=== PATIENT | female | born 1960 | race Caucasian/White ===

== ENCOUNTER 2021-01-30 12:57 | Emergency (ER) | payer OTHER, SELFPAY ==
[2021-01-30 14:10] VITALS: BP 133/94; PULSE 56; RESP 16; TEMP 36.6; O2SAT 98; BMI 34.4
--- NOTE | 2021-01-30 15:34 | XRR_ITS ---
PROCEDURE INFORMATION: Exam: XR Left Ankle Exam date and time: 01/30/2021 3:34 PM Age: 60 years old Clinical indication: Injury or trauma; Blunt trauma; Left; Patient HX: C/O L ankle pain after a fall last night TECHNIQUE: Imaging protocol: XR Left ankle. Views: 3 or more views. COMPARISON: No relevant prior studies available. FINDINGS: Bones/joints: Mildly displaced oblique fracture through the distal left fibula. The other bones are intact. Calcaneus spur. Soft tissues: Lateral soft tissue swelling. XR/XR ankle LT min 3V* [id number] IMPRESSION: 1. Distal left fibula fracture.
--- NOTE | 2021-01-30 16:43 | ED_ITS ---
HPI - Extremity Problem General: Chief complaint: Extremity Injury, Lower Stated complaint: LLE INJURY DUE TO SYNCOPAL EPISODE LAST PM Time Seen by Provider: 01/30/21 15:34 Source: patient Mode of arrival: wheelchair Limitations: no limitations History of Present Illness: HPI Narrative: Pt presents to ER with left ankle pain. Patient states she got overheated yesterday and had a near syncopal episode making her fall patient states she did not hit her head patient does not have any neck pain patient is not on any blood thinners. Patient states that she woke up with worsening pain to her left ankle and swelling. Patient denies any other complaints or injuries. Associated symptoms: Deny chest pain, fever(s) or rash Review of Systems Const: Denies: fever(s), chills, body aches, change in appetite, change in yari ght, fatigue, malaise or diaphoresis Eyes: Denies: change in vision, blurry vision, blind spots, photophobia, eye discomfort, eye discharge, eye redness, floaters or seeing flashes ENMT: Denies: throat pain, uvular edema, enlarged tonsils, odynophagia, hoarseness, mouth pain, swelling of lips/tongue, oral sores, bleeding gums, dental pain, dry mouth, ear or mastoid pain, ear discharge, change in hearing, tinnitus, disequilibrium, nasal discharge, nasal congestion, post nasal drip or sinus pain Card: Denies: chest pain, palpitations, irregular heart rhythm, edema, swelling of feet/ankles, lightheadedness, syncope, pre-syncope, dyspnea on exertion, orthopnea, leg pain with exertion or acrocyanosis Resp: Denies: dyspnea, productive cough, non-productive cough, wheezing, st ridor, pain on inspiration, change in phlegm color, hemoptysis or chest congestion GI: Denies: abdominal pain, nausea, vomiting, hematemesis, dysphagia, diarrhea, constipation, GI cramping, change in bowel habits or rectal pain : Denies: flank pain, difficulty voiding, dysuria, urinary frequency, urinary urgency, urinary hesitancy or hematuria Musc: Reports: extremity pain; Denies: neck pain, back pain, extremity swelling, joint pain, joint swelling, joint redness, joint warmth or deformity Skin/Breast: Denies: rash, pruritus, erythema, sores, new lesions, changes in skin color or dry skin Neuro: Denies: headache(s), numbness in extremities, weakness in extremities, sensory changes, lack of coordination, difficulty walking, frequent falls, dizziness, vertigo, confusion, behavioral changes, Slurred speech present, difficulty communicating thoughts or seizure-like activity Psych: Denies: anxiety, depression, suicidal ideation or homicidal ideation Endo: Denies: polyuria, polydipsia, tired all the time, cold intolerance, excessive sweating, flushing, hot flashes or heat intolerance Chandler/Lymph: Denies: easy bruising, easy bleeding, petechiae, purpura, enlarged lymph nodes or tender lymph nodes All/Imm: Denies: urticaria, throat swelling, tongue swelling, facial swelling, acute wheezing or itchy eyes Physical Exam Const: COMMON NORMALS: no acute distress, average body habitus, patient oriented x3, no limitations, healthy appearing, alert and well nourished HENMT: THROAT: no uvular edema Neck/C-Spine: COMMON NORMALS: full ROM, no lymphadenopathy, supple, no meningeal signs, no JVD, Thyroid normal and No carotid bruits THYROID: Thyroid normal Cardio: COMMON NORMALS: no JVD Extremity: LEFT LOWER EXTREMITY: Yes ankle joint (Swelling to lateral malleolus) Neuro: COMMON NORMALS: patient oriented x3 SENSORIUM/ORIENTATION: Yes alert MENINGEAL SIGNS: Yes no meningeal signs Course Vital Signs: Vital signs: Vital Signs Temperature 98 F 01/30/21 14:10 Pulse Rate 56 L 01/30/21 14:10 Respiratory Rate 16 01/30/21 14:10 Blood Pressure 133/94 01/30/21 14:10 Pulse Oximetry 98 01/30/21 14:10 MDM - Extremity (Nontraumatic) MDM Narrative: Medical decision making narrative: Problem patient is well- appearing nontoxic and in no acute distress. Patient's x-ray by my interpretation does reveal a distal fibular fracture I will plan on placing patient in a posterior OCL give her crutches and have her follow-up with Ortho. Patient was given pain medicine while here in the emergency department I will send patient home with a short course of pain medication. Patient was neurovascularly intact distally pre and post cast application. I discussed with patient her near syncopal episode that occurred yesterday she states that she does not want any work-up or treatment for this. Patient states she just got overheated patient states that he does not have any chest pain or shortness of breath. Again patient is declining any work-up for this. Discharge Plan Discharge Patient Disposition: Home Clinical Impression: Fracture of distal end of fibula Qualifiers: Encounter type: initial encounter Fracture type: closed Fracture morphology: unspecified fracture morphology Laterality: left Qualified Code(s): S82.832A - Other fracture of upper and lower end of left fibula, initial encounter for closed fracture Condition: Stable Prescriptions: New Percocet 5-325 mg tablet 1 tab PO Q8H PRN (Reason: pain) Qty: 14 RF: 0 Discharge Orders: Discharge ED (Routine); Ordered 01/30/21 Ordered By: Sowmya Gerber Referrals: Nemo Genao FNP [Primary Care Provider] - Discharge Diet: Advance as tolerated Discharge Activity: Use walker/crutches as instructed Patient Instructions: Ankle Fracture (ED), Opioid Safety Activity Restrictions/Additional Instructions: Please use crutches and no weight on ankle until seen by Ortho Sales Project Administrator will call you tomorrow Please take pain meds as prescribed No driving or operating heavy machinery while taking pain meds Please return to ER with any loss of sensation or inability to move foot or if foot becomes dislocation Coding Level of Care Code ED Sleep Lab Technologist for Freddy Drummond
--- NOTE | 2021-01-30 16:57 | PC.NURSE ---
Posterior short leg OCL appled L-leg.
[2021-01-30] MEDS: HYDROcodone-acetaminophen 5-325 mg Tablet 1 TAB PO (16:59)
--- NOTE | 2021-01-31 09:59 | DCPLANNER ---
production team manager had message to schedule a follow up appointment for patient with ortho for a fractured ankle. production team manager called the ortho clinic, spoke with Jannie, gave clinic patients information. production team manager was told that patients information would be printed and reviewed. Clinic will call patient with appointment information.
--- NOTE | 2021-02-01 12:52 | DCPLANNER ---
Patient had a follow up appointment scheduled for 01.31.[address] Wright at [facility] - patient did attend appointment.
== END 2021-01-30 17:15 | disposition home or self-care (01) ==
PROVIDERS: Emergency Provider Registered Nurse; PCP Nurse Practitioner Family
DX: S82.832A Other fracture of upper and lower end of left fibula, initial encounter for closed fracture (principal); W19.XXXA Unspecified fall, initial encounter
CPT/HCPCS: 29515; 73610; 99283; E0114

== ENCOUNTER 2021-01-31 16:13 | Outpatient (CLI) | payer OTHER, SELFPAY | END 2021-01-31 16:14 | disposition home or self-care (01) | LOC: SPT 16:14 | PROVIDERS: PCP Nurse Practitioner Family; Visit Provider Podiatrist Foot & Ankle Surgery | DX: Z46.89 Encounter for fitting and adjustment of other specified devices (principal); S82.832D Other fracture of upper and lower end of left fibula, subsequent encounter for closed fracture with routine healing; X58.XXXD Exposure to other specified factors, subsequent encounter | CPT/HCPCS: 97760; L4361 ==

== ENCOUNTER 2021-02-20 07:04 | Outpatient (CLI) | payer OTHER, SELFPAY ==
[2021-02-20 10:27] VITALS: BP 161/97; PULSE 62; RESP 18; TEMP 36.8; O2SAT 96; BMI 37.3
[2021-02-20 11:52] VITALS: BP 147/89; PULSE 59; RESP 18; TEMP 37.1; O2SAT 97
--- NOTE | 2021-02-20 11:52 | PC.NURSE ---
IV DC'd, cath intact, bleeding controlled with cotton ball and coban,zero difficulties or complaints.
[2021-02-20 12:52] VITALS: BP 147/89; PULSE 59; RESP 18; TEMP 37.1; O2SAT 97
--- NOTE | 2021-02-20 12:52 | PC.NURSE ---
DC ,Ambulatory to POV with zero difficulties.
== END 2021-02-20 07:05 | disposition home or self-care (01) ==
LOC: ER 07:10
PROVIDERS: PCP Internal Medicine; Visit Provider Nurse Practitioner Family
DX: U07.1 COVID-19 (principal)
CPT/HCPCS: 96374

== ENCOUNTER → 2021-03-07 13:31 | Outpatient (BNVA) | payer OTHER, SELFPAY | PROVIDERS: PCP Internal Medicine; Visit Provider Podiatrist Foot & Ankle Surgery | DX: S82.832A Other fracture of upper and lower end of left fibula, initial encounter for closed fracture (principal); X58.XXXA Exposure to other specified factors, initial encounter | CPT/HCPCS: 73610; 99282 ==

== ENCOUNTER → 2021-04-01 13:46 | Outpatient (BNVA) | payer OTHER, SELFPAY | PROVIDERS: PCP Internal Medicine; Visit Provider Podiatrist Foot & Ankle Surgery | DX: S82.832A Other fracture of upper and lower end of left fibula, initial encounter for closed fracture (principal); X58.XXXA Exposure to other specified factors, initial encounter | CPT/HCPCS: 73610 ==

== ENCOUNTER 2021-04-01 14:15 | Outpatient (CLI) | payer OTHER, SELFPAY | END 2021-04-01 14:16 | disposition home or self-care (01) | LOC: SPT 14:16 | PROVIDERS: PCP Internal Medicine; Visit Provider Podiatrist Foot & Ankle Surgery | DX: Z46.89 Encounter for fitting and adjustment of other specified devices (principal); S82.832D Other fracture of upper and lower end of left fibula, subsequent encounter for closed fracture with routine healing; X58.XXXD Exposure to other specified factors, subsequent encounter | CPT/HCPCS: L4361 ==

== ENCOUNTER → 2021-04-27 12:52 | Outpatient (BNVA) | payer OTHER, SELFPAY | PROVIDERS: PCP Internal Medicine; Visit Provider Podiatrist Foot & Ankle Surgery | DX: S82.832D Other fracture of upper and lower end of left fibula, subsequent encounter for closed fracture with routine healing (principal); M25.372 Other instability, left ankle; X58.XXXA Exposure to other specified factors, initial encounter | CPT/HCPCS: 73610 ==

== ENCOUNTER → 2021-05-26 12:59 | Outpatient (BNVA) | payer OTHER, SELFPAY | PROVIDERS: PCP Internal Medicine; Visit Provider Podiatrist Foot & Ankle Surgery | DX: S82.832D Other fracture of upper and lower end of left fibula, subsequent encounter for closed fracture with routine healing (principal); X58.XXXD Exposure to other specified factors, subsequent encounter | CPT/HCPCS: 73610 ==

== ENCOUNTER → 2023-02-15 13:43 | Outpatient (BNVA) | payer OTHER, SELFPAY | PROVIDERS: PCP Internal Medicine; Visit Provider Emergency Medicine | DX: R50.9 Fever, unspecified (principal); Z20.822 Contact with and (suspected) exposure to COVID-19 | CPT/HCPCS: 87426 ==

== ENCOUNTER 2023-02-16 10:45 | Emergency (ER) | payer OTHER, SELFPAY ==
[2023-02-16] VITALS (7 sets, daily range): BP systolic 104–141; BP diastolic 62–101; PULSE 93–123; RESP 16–18; TEMP 36.6; O2SAT 92–98; BMI 34.4
[2023-02-16 12:08] LABS: Basophils # 0.1 10^3/uL (0.0-0.1); Basophils % 0.4 %; Eosinophils % 0.1 %; Hematocrit 43.2 % (37.0-47.0); Hemoglobin 14.2 g/dL (11.5-15.3); Lymphocytes # 1.3 10^3/uL (0.8-4.8); Lymphocytes % 6.5 %; Mean Corpuscular HGB Conc 32.9 g/dL (30.0-36.0); Mean Corpuscular Hemoglobin 29.5 pg (28.0-34.0); Mean Corpuscular Volume 89.6 fl (81-99); Mean Platelet Volume 11.4 fL (7.4-10.4); Monocytes # 2.1 10^3/uL (0.2-0.9); Monocytes % 10.1 %; Neutrophils % 82.4 %; Nucleated Red Blood Cells % 0 %; Platelet Count 316 10^3/cmm (130-400); Red Blood Count 4.82 10^6/uL (4.1-5.3); Red Cell Distribution Width 11.9 % (12.1-15.1); White Blood Count 20.3 10^3/uL (4.0-10.0)
[2023-02-16 12:29] LABS: Alanine Aminotransferase 15 U/L (0-33); Albumin Level 4.5 g/dL (3.5-5.2); Alkaline Phosphatase 106 U/L (35-105); Anion Gap 17.3 (5-19); Aspartate Amino Transferase 21 U/L (0-32); Blood Urea Nitrogen 13 mg/dL (8-23); Calcium 9.5 mg/dL (8.5-10.5); Carbon Dioxide 26 mmol/L (22-29); Chloride 96 mmol/L (98-107); Globulin 2.2 g/dL (1.3-4.6); Glomerular Filtration Rate 72.9 mL/min (90-130); Glucose 123 mg/dL (65-115); Lipase 14 U/L (13-60); Osmolality Calculated 281 mOsm/kg (285-295); Potassium 4.3 mmol/L (3.5-5.1); Sodium 135 mmol/L (136-145); Total Bilirubin 1.1 mg/dL (0.15-1.2); Total Protein 6.7 g/dL (6.6-8.7)
--- NOTE | 2023-02-16 12:42 | CT_ITS ---
WS: [id number] CT ABDOMEN PELVIS TECHNIQUE: Noncontrast CT of the abdomen and pelvis with coronal and sagittal reformatted images. CLINICAL INFORMATION: Abdominal pain COMPARISON: None. DLP: 974.[address] scans at [facility] use at least one of these dose optimization techniques: automated e xposure control; mA and/or kV adjustment per patient size (includes targeted exams where dose is matc hed to clinical indication); or iterative reconstruction. FINDINGS: Diffuse gallbladder wall thickening with surrounding inflammatory changes and edema suspicious for ac [place] cholecystitis. Cholelithiasis with calcified stones in the gallbladder neck extending to the cyst ic duct. Suspected associated compression of the common hepatic duct. This can be further evaluated w ith MRCP if indicated. Distal common bile duct appears to taper normally. No significant intrahepatic biliary ductal dilatation. Enlarged lymph nodes within the gallbladder fossa with pericholecystic fl uid. Patient risk for a cholecystocholedochal fistula with Mirizzi syndrome. Inflammatory changes and edema surrounding the hepatic flexure RIGHT upper quadrant. Duodenum courses adjacent to the gallbladder with loss of fat plane. Patient risk for cholecystoduode nal fistula especially if persistent chronic inflammation. Noncontrast liver appears normal. Normal noncontrast spleen. Normal GE junction. Lung bases are well aerated. Noncontrast pancreas appears normal. Splenic artery calcification. Normal caliber abdominal aorta. Aortic calcification. Adrenal glands are normal. No hydronephrosis in either kidney. [id number] amount of free fluid in the pelvis. Lobulated retroverted uterus with suspected exo phytic fibroid measuring 3.7 CM. This can be followed up with ultrasound on an elective basis. Inspis sated secretions in the appendix. CT/CT kidney stone [id number] IMPRESSION: 1. Distended gallbladder with diffuse gallbladder thickening and pericholecyst ic fluid with inflammation compatible with acute cholecystitis. 2. Calcified gallstones high within the gallbladder neck near the cystic duct. Possible compression of the traversing common hepatic duct which can be seen w ith Mirizzi syndrome. Patient at risk for cholecystocholedochal fistula with Mi jovanna syndrome. 3. Loss of the fat plane with inflammatory changes extending about the jerad ing adjacent duodenum. Patient risk for cholecystoduodenal fistula especially i f persistent chronic inflammation. 4. Common bile duct appears to taper normally distally. No intrahepatic biliar y duct dilatation. 5. Lobulated uterus with suspected exophytic fibroid measuring 3.7 x 3.1 CM. T his can be followed up with ultrasound on an elective basis. 6. Small amount of free fluid in the pelvis. 7. Inspissated secretions in the appendix. 8. No hydronephrosis in either kidney. Notified Alphonse Wong DO at 02/16/2023 1:59 PM.
[2023-02-16 12:46] LABS: Bilirubin Urine 1+ (Negative); Blood Urine 2+ (Negative); Glucose Urine UA Norm (Normal); Ketones Urine 1+ (Negative); Leukocyte Esterase Urine Trace (Negative); Nitrate Urine Negative (Negative); Protein Urine Trace (Negative); Urine Appearance Clear (CLEAR); Urine Color Amber (Yellow); Urobilinogen Urine 4 mg/dL (Negative); pH Urine 5 (5-7)
[2023-02-16 12:47] LABS: Add Urine Microscopic? YES
[2023-02-16 12:48] LABS: Add Urine Culture? No; Amorphous Sediment Urine 1+ /hpf; Mucus Urine 1+ /hpf; Squamous Epithelial Cell Urine 0-4 /hpf (0-5); WBC Urine 0-4 /hpf (0-5)
--- NOTE | 2023-02-16 13:00 | ED_ITS ---
Documented by User: Alphonse Wong DO 02/16/23 18:32 HPI - Abdominal Pain General: Chief Complaint: Abdominal Pain Stated Complaint: abd pain on right side Time Seen by Provider: 02/16/23 11:59 Source: patient Mode of arrival: ambulatory History of Present Illness: 62-year-old female comes in complaining of right-sided abdominal pain for the last 4 days. She had nausea and vomiting during that time no hematochezia melena hematemesis or coffee-ground emesis no dysuria urgency or frequency. E ating makes it worse. Right upper quadrant right mid abdominal pain. She had temperature up to 101 yesterday. MD elicited complaint: abdominal pain Pertinent past history: none Onset (ago): day(s) (4) Pain Consistency: constant Location: RUQ Severity: moderate Quality: cramping Exacerbating factors: eating Relieving factors: nothing Associated Symptoms: Reports nausea and vomiting; Denies anorexia, belching, bloating, change in bowel habits, change in stool character, chills, coffee ground emesis, constipation, GI cramping, diarrhea, dyspepsia, dysuria, excessive flatus, fever(s), heartburn, hematochezia, hem aturia, hematemesis, fecal incontinence, loose stools, melena, poor appetite and syncope Review of Systems Const: Denies: fever(s) or chills Card: Denies: syncope GI: Reports: abdominal pain, nausea and vomiting; Denies: hematemesis, coffee ground emesis, heartburn, diarrhea, constipation, bloating, GI cramping, belching, excessive flatus, fecal incontinence, change in bowel habits, change in stool character, hematochezia or melena : Denies: dysuria, urinary frequency, urinary urgency or hematuria Physical Exam Const: GENERAL APPEARANCE: cooperative and comfortable ORIENTATION/CONSCIOUSNESS: Yes awake, Yes oriented to person, Yes oriented to place and Yes oriented to time HENMT: COMMON NORMALS: normocephalic, atraumatic and hearing grossly normal bilaterally HEAD & SCALP: normocephalic and atraumatic Resp: COMMON NORMALS: normal respiratory effort, No retractions, No use of accessory muscles and clear to auscultation bilaterally AUSCULTATION: clear to auscultation bilaterally Cardio: COMMON NORMALS: regular rate, regular rhythm and No murmurs present (Cardio) RATE: regular rate RHYTHM: regular rhythm GI: COMMON NORMALS: No hepatosplenomegaly present AUSCULTATION: Yes normoactive bowel sounds PALPATION: Yes Tenderness to palpation present (GI) (Right mid abdomen) Details: RUQ, No Guarding due to palpation present (GI) and Yes No hepatosplenomegaly present Extremity: COMMON NORMALS: normal to inspection, capillary refill normal, no clubbing, cyanosis or edema, no calf tenderness and no pedal edema Neuro: SENSORIUM/ORIENTATION: Yes oriented to person, Yes oriented to place and Yes oriented to time Skin: COMMON NORMALS: no rashes or lesions noted GENERAL SKIN EXAM: no rashes or lesions noted Course Vital Signs: Vital signs: Vital Signs Temperature 97.8 F 02/16/23 10:51 Pulse Rate 101 H 02/16/23 16:39 Respiratory Rate 16 02/16/23 22:41 Blood Pressure 112/62 02/16/23 22:41 Pulse Oximetry 92 02/16/23 22:41 Oxygen Delivery Me thod Room Air 02/16/23 15:34 MDM - Abdominal Pain Medical Decision Making Maintenance fluids ordered. Second dose of Zosyn ordered as well. Care signed out to Dr. Gil at change of shift. See final notes for diagnosis and disposition. Lab Data 02/16/23 11:58 02/16/23 11:58 Labs/Radiology: Radiology Impressions Abdomen/Pelvis CT 02/16/23 12:42 IMPRESSION: 1. Distended gallbladder with diffuse gallbladder thickening and pericholecystic fluid with inflammation compatible with acute cholecystitis. 2. Calcified gallstones high within the gallbladder neck near the cystic duct. Possible compression of the traversing common hepatic duct which can be seen with Mirizzi syndrome. Patient at risk for cholecystocholedochal fistula with Mirizzi syndrome. 3. Loss of the fat plane with inflammatory changes extending about the traversing adjacent duodenum. Patient risk for cholecystoduodenal fistula especially if persistent chronic inflammation. 4. Common bile duct appears to taper normally distally. No intrahepatic biliary duct dilatation. 5. Lobulated uterus with suspected exophytic fibroid measuring 3.7 x 3.1 CM. This can be followed up with ultrasound on an elective basis. 6. Small amount of free fluid in the pelvis. 7. Inspissated secretions in the appendix. 8. No hydronephrosis in either kidney. Notified Alphonse Wong DO at 02/16/2023 1:59 PM. Gallbladder Ultrasound 02/16/23 13:30 IMPRESSION: 1. Diffuse gallbladder wall thickening with pericholecystic fluid compatible with acute cholecystitis. Positive Gold's sign. 2. Cholelithiasis and sludge. Calcified stones in gallbladder neck as seen on the recent CT. 3. Common bile duct measuring 7.1 mm upper limits of normal. This can be further evaluated with MRCP if indicated. Recommend correlation with biliary function tests. No visualized choledocholithiasis. 4. Hepatomegaly. Notified Alphonse Wong DO at 02/16/2023 2:36 PM. Laboratory Results WBC 20.3 10^3/uL (4.0-10.0) H 02/16/23 11:58 RBC 4.82 10^6/uL (4.1-5.3) 02/16/23 11:58 Hgb 14.2 g/dL (11.5-15.3) 02/16/23 11:58 Hct 43.2 % (37.0-47.0) 02/16/23 11:58 MCV 89.6 fl (81-99) 02/16/23 11:58 MCH 29.5 pg (28.0-34.0) 02/16/23 11:58 MCHC 32.9 g/dL (30.0-36.0) 02/16/23 11:58 RDW 11.9 % (12.1-15.1) L 02/16/23 11:58 Plt Count 316 10^3/cmm (130-400) 02/16/23 11:58 MPV 11.4 fL (7.4-10.4) H 02/16/23 11:58 Neut % (Auto) 82.4 % 02/16/23 11:58 Lymph % (Auto) 6.5 % 02/16/23 11:58 [place] % (Auto) 10.1 % 02/16/23 11:58 Eos % (Auto) 0.1 % 02/16/23 11:58 Baso % (Auto) 0.4 % 02/16/23 11:58 Neut # (Auto) 16.70 10^3/uL (1.8-7.7) H 02/16/23 11:58 Lymph # (Auto) 1.3 10^3/uL (0.8-4.8) 02/16/23 11:58 [place] # (Auto) 2.1 10^3/uL (0.2-0.9) H 02/16/23 11:58 Eos # (Auto) 0.0 10^3/uL (0.0-0.8) 02/16/23 11:58 Baso # (Auto) 0.1 10^3/uL (0.0-0.1) 02/16/23 11:58 Nucleated RBC % (auto) 0 % 02/16/23 11:58 Nucleated RBCs # 0.0 /100WBC 02/16/23 11:58 Sodium 135 mmol/L (136-145) L 02/16/23 11:58 Potassium 4.3 mmol/L (3.5-5.1) 02/16/23 11:58 Chloride 96 mmol/L (98-107) L 02/16/23 11:58 Carbon Dioxide 26 mmol/L (22-29) 02/16/23 11:58 Anion Gap 17.3 (5-19) 02/16/23 11:58 BUN 13 mg/dL (8-23) 02/16/23 11:58 Creatinine 0.8 mg/dL (0.5-0.9) 02/16/23 11:58 GFR Calculation 72.9 mL/min (90-130) L 02/16/23 11:58 Glucose 123 mg/dL (65-115) H 02/16/23 11:58 Calculated Osmolality 281 mOsm/kg (285-295) L 02/16/23 11:58 Calcium 9.5 mg/dL (8.5-10.5) 02/16/23 11:58 Total Bilirubin 1.1 mg/dL (0.15-1.2) 02/16/23 11:58 AST 21 U/L (0-32) 02/16/23 11:58 ALT 15 U/L (0-33) 02/16/23 11:58 Alkaline Phosphatase 106 U/L (35-105) H 02/16/23 11:58 Total Protein 6.7 g/dL (6.6-8.7) 02/16/23 11:58 Albumin 4.5 g/dL (3.5-5.2) 02/16/23 11:58 Globulin 2.2 g/dL (1.3-4.6) 02/16/23 11:58 Lipase 14 U/L (13-60) 02/16/23 11:58 Urine Color Charu (Yellow) 02/16/23 12:24 Urine Appearance Clear (CLEAR) 02/16/23 12:24 Urine pH 5 (5-7) 02/16/23 12:24 Ur Specific [place] 1.020 (1.005-1.030) 02/16/23 12:24 Urine Protein Trace (Negative) 02/16/23 12:24 Urine Glucose (UA) Norm (Normal) 02/16/23 12:24 Urine Ketones 1+ (Negative) H 02/16/23 12:24 Urine Blood 2+ (Negative) H 02/16/23 12:24 Urine Nitrate Negative (Negative) 02/16/23 12:24 Urine Bilirubin 1+ (Negative) H 02/16/23 12:24 Urine Urobilinogen 4 mg/dL (Negative) H 02/16/23 12:24 Ur Leukocyte Esterase Trace (Negative) H 02/16/23 12:24 Urine RBC 5-10 /hpf (0-2) H 02/16/23 12:24 Urine WBC 0-4 /hpf (0-5) H 02/16/23 12:24 Ur Squamous Epith Cells 0-4 /hpf (0-5) H 02/16/23 12:24 Amorphous Sediment 1+ /hpf 02/16/23 12:24 Urine Bacteria None /hpf (NONE) 02/16/23 12:24 Urine Mucus 1+ /hpf 02/16/23 12:24 Discharge Plan Discharge Condition: Stable Prescriptions: No Action (DME) ASO to the Right See Rx Instructions .ROUTE .MEDSUPPLY Qty: 1 0RF Rx Instructions: As directed metoprolol tartrate 100 mg tablet 100 mg PO BID aspirin 81 mg tablet,chewable 81 mg PO DAILY methocarbamol 750 mg tablet 750 mg PO TID Qty: 30 0RF Referrals: Bailey Conde MD [Primary Care Provider] - Coding Level of Care Code ED Precision Filer Hand for Chg Fwd Documented by User: Yosef Gil DO 02/17/23 03:49 HPI - Abdominal Pain General: Chief Complaint: Abdominal Pain Stated Complaint: abd pain on right side Time Seen by Provider: 02/16/23 11:59 Course Vital Signs: Vital signs: Vital Signs Temperature 97.8 F 02/16/23 10:51 Pulse Rate 101 H 02/16/23 16:39 Respiratory Rate 16 02/16/23 22:41 Blood Pressure 112/62 02/16/23 22:41 Pulse Oximetry 92 02/16/23 22:41 Oxygen Delivery Me thod Room Air 02/16/23 15:34 MDM - Abdominal Pain Medical Decision Making Maintenance fluids ordered. Second dose of Zosyn ordered as well. Care signed out to Dr. Gil at change of shift. See final notes for diagnosis and disposition. 62-year-old female with abdominal pain, no fever. Some tachycardia. She is normotensive. White blood cell count is 20. CT shows a distended gallbladder with diffuse wall thickening and pericholecystic fluid consistent with acute cholecystitis. Surgery was consulted by the previous physician. Concern is for possible chronic inflammation, and a potential fistula complicating her anatomy. The surgeons concern is that the common bile duct may have to be reconstructed. We contacted both hospitals in [place]. [facility] states that they usually send these patients to [facility] in [place] for subspecialty care. [facility] has accepted this patient in transfer. She remained stable. She will go by ground this morning. Lab Data 02/16/23 11:58 02/16/23 11:58 Labs/Radiology: Radiology Impressions Abdomen/Pelvis CT 02/16/23 12:42 IMPRESSION: 1. Distended gallbladder with diffuse gallbladder thickening and parris cholecystic fluid with inflammation compatible with acute cholecystitis. 2. Calcified gallstones high within the gallbladder neck near the cystic duct. Possible compression of the traversing common hepatic duct which can be seen with Mirizzi syndrome. Patient at risk for cholecystocholedochal fistula with Mirizzi syndrome. 3. Loss of the fat plane with inflammatory changes extending about the traversing adjacent duodenum. Patient risk for cholecystoduodenal fistula edwin ecially if persistent chronic inflammation. 4. Common bile duct appears to taper normally distally. No intrahepatic biliary duct dilatation. 5. Lobulated uterus with suspected exophytic fibroid measuring 3.7 x 3.1 CM. This can be followed up with ultrasound on an elective basis. 6. Small amount of free fluid in the pelvis. 7. Inspissated secretions in the appendix. 8. No hydronephrosis in either kidney. Notified Alphonse Wong DO at 02/16/2023 1:59 PM. Gallbladder Ultrasound 02/16/23 13:30 IMPRESSION: 1. Diffuse gallbladder wall thickening with pericholecystic fluid compatible with acute cholecystitis. Positive Gold's sign. 2. Cholelithiasis and sludge. Calcified stones in gallbladder neck as seen on the recent CT. 3. Common bile duct measuring 7.1 mm upper limits of normal. This can be further evaluated with MRCP if indicated. Recommend correlation with biliary function tests. No visualized choledocholithiasis. 4. Hepatomegaly. Notified Alphonse Wong DO at 02/16/2023 2:36 PM. Laboratory Results WBC 20.3 10^3/uL (4.0-10.0) H 02/16/23 11:58 RBC 4.82 10^6/uL (4.1-5.3) 02/16/23 11:58 Hgb 14.2 g/dL (11.5-15.3) 02/16/23 11:58 Hct 43.2 % (37.0-47.0) 02/16/23 11:58 MCV 89.6 fl (81-99) 02/16/23 11:58 MCH 29.5 pg (28.0-34.0) 02/16/23 11:58 MCHC 32.9 g/dL (30.0-36.0) 02/16/23 11:58 RDW 11.9 % (12.1-15.1) L 02/16/23 11:58 Plt Count 316 10^3/cmm (130-400) 02/16/23 11:58 MPV 11.4 fL (7.4-10.4) H 02/16/23 11:58 Neut % (Auto) 82.4 % 02/16/23 11:58 Lymph % (Auto) 6.5 % 02/16/23 11:58 [place] % (Auto) 10.1 % 02/16/23 11:58 Eos % (Auto) 0.1 % 02/16/23 11:58 Baso % (Auto) 0.4 % 02/16/23 11:58 Neut # (Auto) 16.70 10^3/uL (1.8-7.7) H 02/16/23 11:58 Lymph # (Auto) 1.3 10^3/uL (0.8-4.8) 02/16/23 11:58 [place] # (Auto) 2.1 10^3/uL (0.2-0.9) H 02/16/23 11:58 Eos # (Auto) 0.0 10^3/uL (0.0-0.8) 02/16/23 11:58 Baso # (Auto) 0.1 10^3/uL (0.0-0.1) 02/16/23 11:58 Nucleated RBC % (auto) 0 % 02/16/23 11:58 Nucleated RBCs # 0.0 /100WBC 02/16/23 11:58 Sodium 135 mmol/L (136-145) L 02/16/23 11:58 Potassium 4.3 mmol/L (3.5-5.1) 02/16/23 11:58 Chloride 96 mmol/L (98-107) L 02/16/23 11:58 Carbon Dioxide 26 mmol/L (22-29) 02/16/23 11:58 Anion Gap 17.3 (5-19) 02/16/23 11:58 BUN 13 mg/dL (8-23) 02/16/23 11:58 Creatinine 0.8 mg/dL (0.5-0.9) 02/16/23 11:58 GFR Calculation 72.9 mL/min (90-130) L 02/16/23 11:58 Glucose 123 mg/dL (65-115) H 02/16/23 11:58 Calculated Osmolality 281 mOsm/kg (285-295) L 02/16/23 11:58 Calcium 9.5 mg/dL (8.5-10.5) 02/16/23 11:58 Total Bilirubin 1.1 mg/dL (0.15-1.2) 02/16/23 11:58 AST 21 U/L (0-32) 02/16/23 11:58 ALT 15 U/L (0-33) 02/16/23 11:58 Alkaline Phosphatase 106 U/L (35-105) H 02/16/23 11:58 Total Protein 6.7 g/dL (6.6-8.7) 02/16/23 11:58 Albumin 4.5 g/dL (3.5-5.2) 02/16/23 11:58 Globulin 2.2 g/dL (1.3-4.6) 02/16/23 11:58 Lipase 14 U/L (13-60) 02/16/23 11:58 Urine Color Charu (Yellow) 02/16/23 12:24 Urine Appearance Clear (CLEAR) 02/16/23 12:24 Urine pH 5 (5-7) 02/16/23 12:24 Ur Specific [place] 1.020 (1.005-1.030) 02/16/23 12:24 Urine Protein Trace (Negative) 02/16/23 12:24 Urine Glucose (UA) Norm (Normal) 02/16/23 12:24 Urine Ketones 1+ (Negative) H 02/16/23 12:24 Urine Blood 2+ (Negative) H 02/16/23 12:24 Urine Nitrate Negative (Negative) 02/16/23 12:24 Urine Bilirubin 1+ (Negative) H 02/16/23 12:24 Urine Urobilinogen 4 mg/dL (Negative) H 02/16/23 12:24 Ur Leukocyte Esterase Trace (Negative) H 02/16/23 12:24 Urine RBC 5-10 /hpf (0-2) H 02/16/23 12:24 Urine WBC 0-4 /hpf (0-5) H 02/16/23 12:24 Ur Squamous Epith Cells 0-4 /hpf (0-5) H 02/16/23 12:24 Amorphous Sediment 1+ /hpf 02/16/23 12:24 Urine Bacteria None /hpf (NONE) 02/16/23 12:24 Urine Mucus 1+ /hpf 02/16/23 12:24 Discharge Plan Discharge Condition: Stable Prescriptions: No Action (DME) ASO to the Right See Rx Instructions .ROUTE .MEDSUPPLY Qty: 1 0RF Rx Instructions: As directed metoprolol tartrate 100 mg tablet 100 mg PO BID aspirin 81 mg tablet,chewable 81 mg PO DAILY methocarbamol 750 mg tablet 750 mg PO TID Qty: 30 0RF Referrals: Bailey Conde MD [Primary Care Provider] - Coding Level of Care Code ED Precision Filer Hand for Marissag Bhanu
--- NOTE | 2023-02-16 13:30 | US_ITS ---
WS: [id number] ULTRASOUND ABDOMEN LIMITED CLINICAL INFORMATION: Right upper quadrant abdominal pain COMPARISON: None. FINDINGS: Liver Size: Enlarged Craniocaudal length: 18.2 cm. Echogenicity: Normal. Surface nodularity: None. Mass (size and location): None. Bile ducts Intrahepatic ducts: Normal. Common bile duct diameter: 0.7 cm. Gallbladder Findings suspicious for acute cholecystitis Gallstones: Present Gallbladder sludge: Present Gallbladder wall thickenin mm Pericholecystic fluid: Present Sonographic Gold sign: Present Pancreas Normal as visualized. Right kidney: Normal. Hydronephrosis: None. Size: 12.1 cm x 6.1 cm x 4.5 cm. Abdominal aorta and IVC Visualized portions are normal. US/US gall bladder [id number] IMPRESSION: 1. Diffuse gallbladder wall thickening with pericholecystic fluid compatible w ith acute cholecystitis. Positive Gold's sign. 2. Cholelithiasis and sludge. Calcified stones in gallbladder neck as seen on the recent CT. 3. Common bile duct measuring 7.1 mm upper limits of normal. This can be furth er evaluated with MRCP if indicated. Recommend correlation with biliary functio n tests. No visualized choledocholithiasis. 4. Hepatomegaly. Notified Alphonse Wong DO at 02/16/2023 2:36 PM.
[2023-02-16] MEDS: ondansetron 2 mg/ML SDV 2 mL 4 MG IVP (14:19)
[2023-02-16] MEDS: morphine 4 mg/mL SDV 1 mL IVP ×2 (14:19→16:39)
[2023-02-16] MEDS: sodium chloride 0.9% 1,000 ML 999 ML IV (14:20)
[2023-02-16] MEDS: piperacillin-tazobactam 3.375 GM in sodium chloride 0.9% (plus) 50 ML IV ×2 (14:20→22:54)
--- NOTE | 2023-02-16 15:44 | DCPLANNER ---
Yennifer Reed advised no beds at this time for surgery unit and to try back this evening if needed.
--- NOTE | 2023-02-16 15:50 | DCPLANNER ---
lates[facility] tompkins would not be able to take this patient. He suggested trying [facility].
--- NOTE | 2023-02-16 16:08 | PM.CONSULT ---
Providers/Reason For Consult Consulting Physician/Specialty*: General surgery Reason for Consult*: Acute cholecystitis Primary Care Provider: Bailey Conde MD History of Present Illness History of Present Illness Phyllis Greene is a 62 year old female who presents to our emergency department complaining of right upper quadrant pain. Patient states that the pain started last Sunday, it was initially intermittent but after 48 hours it became constant and has limited her ability to continue her daily activities. In addition she has noticed multiple episodes of nausea that would lead to vomiting, in addition she had a fever up to 101 yesterday. Has not noticed any relieving factors but eating aggravates the pain. Review of Systems Narrative: A 10 point review of systems was done and is negative otherwise noted in HPI General: No constitutional complaints Respiratory: No shortness of breath Cardiovascular: No chest pain, no arrhythmia GI: Endorses abdominal pain, endorses nausea Musculoskeletal: No current complaints Medications/Allergies Home Medications Medication Instructions Recorded Confirmed Last Taken Type ASO to the Right #1 ea 04/27/21 02/16/23 Unknown Rx aspirin 81 mg chewable tablet 81 mg PO DAILY 05/26/21 02/16/23 02/16/23 History metoprolol tartrate 100 mg tablet 100 mg PO BID 05/26/21 02/16/23 02/16/23 History methocarbamol 750 mg tablet 750 mg PO TID #30 tabs 02/15/23 02/16/23 Unknown Rx Allergies Allergy/AdvReac Type Severity Reaction Status Date / Time tramadol Allergy Intermediate Hullucinati Verified 02/16/23 10:55 ons lisinopril Allergy syncope Uncoded 02/16/23 10:55 Vitals/I&O/Wt Last Vital Signs Temp 97.8 F 02/16/23 10:51 Pulse 94 02/16/23 15:34 Resp 18 02/16/23 10:51 BP 141/101 02/16/23 15:34 Pulse Ox 97 02/16/23 15:34 O2 Del Method Room Air 02/16/23 15:34 02/16/23 02/16/23 02/16/23 06:59 14:59 22:59 Intake Total 1050 / 1050 Balance 1050 / 1050 Weight last 48 hrs Weight 240 lb Physical Exam Narrative: General : Patient is well developed, oriented x3 Head : Normal cephalic, a-traumatic. Nose : Mucous membranes are without erythema. Lungs : Equal chest rise bilaterally, no use of accessory muscles, trachea is midline. CV : Rate and rhythm are normal. Abdomen : Abdomen is soft, mildly distended, there is significant tenderness to palpation in the right upper quadrant, Gold sign is positive. Extremities : No edema. Upper extremities are normal bilaterally. Data 02/16/23 11:58 02/16/23 11:58 A&P Assessment and plan (1) Acute cholecystitis: (2) Mirizzi's syndrome: Plan This is a 62-year-old female who presented to our emergency department with abdominal pain for the last 5 days. Pain is located in the right upper quadrant 10/10 of intensity, associated with nausea vomiting and worsening with food ingestion. Work-up done in the emergency department shows evidence of a elevated white count to 20 K, CT scan shows evidence of acute cholecystitis with a gallbladder wall up to 7 mm, severe pericholecystic inflammation involving the gallbladder duodenum and hepatic flexure of the colon, large impacted gallstones at the level of the neck of the gallbladder with absent cystic duct and loss of tissue planes between the gallbladder and the biliary structures as well as the gallbladder and the duodenum. On my clinical evaluation symptoms are consistent with acute cholecystitis. 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 I have had an extensive discussion with the patient regarding the possible need for surgery, versus management with nonoperative interventions (antibiotics). I Explained that due to severity of the inflammation surgery in this context is extremely risky for damage of the surrounding biliary structures or duodenum, which will carry severe long-term consequences. I have also mentioned that even with nonoperative management, there is likelihood of failure of treatment requiring cholecystectomy and there will be a need for an interval cholecystectomy once the acute episode resolves. I have also discussed that due to loss of tissue planes and an apparent compromise of the junction between the cystic duct and the common bile duct the likelihood of requiring biliary reconstruction during initial lap ben is high, I have informed the patient that at the moment we do not have the capability of providing this service in our institution and therefore I believe it is in her best interest to be transferred to a facility with the capability of management Hepatobiliary surgery or advance Gi availability. Plan was discussed with ER attending Dr. Wong who will initiate the transfer process. Coding Level of Care Code 93587 Diagnoses Acute cholecystitis K81.0 Mirizzi's syndrome K83.1
[2023-02-16] MEDS: sodium chlor 0.9% + KCl 20 mEq 20 MEQ/1,000 ML BAG 125 MEQ IV (19:08)
[2023-02-17] MEDS: morphine 4 mg/mL SDV 1 mL IVP (02:22)
[2023-02-17] MEDS: ondansetron 2 mg/ML SDV 2 mL 4 MG IVP (02:23)
[2023-02-17] MEDS: piperacillin-tazobactam 3.375 GM in sodium chloride 0.9% (plus) 50 ML IV (07:23)
== END 2023-02-17 08:00 | disposition short-term general hospital (02) ==
PROVIDERS: Physician Assistant; Emergency Provider Emergency Medicine; PCP Internal Medicine
DX: K80.20 Calculus of gallbladder without cholecystitis without obstruction (principal)
CPT/HCPCS: 36415; 74176; 76705; 80053; 81001; 83690; 85025; 96365; 96375; 96376; 99255; 99285; J2270; J2405; J2543; J3480; J7030

== ENCOUNTER 2023-11-16 13:03 | Outpatient (CLI) | payer OTHER, SELFPAY ==
--- NOTE | 2023-11-16 13:15 | MM_ITS ---
WS: [id number] BILATERAL 3D TOMOSYNTHESIS DIGITAL SCREENING MAMMOGRAPHY WITH CAD CLINICAL INFORMATION: SCREENING HISTORY: Screening mammogram. No current complaints. COMPARISON: 2013 TECHNIQUE: Bilateral CC and MLO views. FINDINGS: Scattered fibroglandular densities bilaterally. No suspicious focal mass, asymmetry, calcifications, or architectural distortion. No evidence of malignancy. A few incidental punctate and lucent centered calcifications. Bilateral biopsy clips. Lobulated focal asymmetric density central RIGHT breast unch anged since 2013 measuring 1.3 cm with adjacent small satellite nodule measuring 0.7 cm also unchange d. Vascular calcification. IMPRESSION: MM/[place] [id number] BI-RADS: 2-Benign FOLLOW UP: 1 Year Follow-up Recommend return to annual screening mammography.
== END 2023-11-16 13:04 | disposition home or self-care (01) ==
LOC: RAD 13:06
PROVIDERS: PCP Internal Medicine; Visit Provider Nurse Practitioner Family
DX: Z12.31 Encounter for screening mammogram for malignant neoplasm of breast (principal); R92.323 Mammographic fibroglandular density, bilateral breasts; N63.10 Unspecified lump in the right breast, unspecified quadrant
CPT/HCPCS: 77063; 77067

== ENCOUNTER 2024-01-09 09:47 | Day surgery (SDC) | payer OTHER, SELFPAY ==
[2024-01-09 10:07] VITALS: BP 149/85; PULSE 76; RESP 16; TEMP 36.4; O2SAT 98; BMI 33.7
[2024-01-09] MEDS: sodium chloride 0.9% 1,000 ML 30 ML IV (10:14)
--- NOTE | 2024-01-09 10:37 | P.ANESASSM_ITS ---
Pre-Anesthetic Assessment Height/Weight: Height 1.78 m Weight 106.594 kg Temp Pulse Resp BP Pulse Ox O2 Del Method 97.5 F L 76 16 149/85 98 Room Air 01/09/24 10:07 01/09/24 10:07 01/09/24 10:07 01/09/24 10:07 01/09/24 10:07 01/09/24 10:07 Operation Date: 01/09/24 11:00 Proposed Procedures p EGD 40697, 56867,G0105, K21.9, Z80.0, R1.13(Not Applicable) - Pascual Sadler DO s Colonoscopy(Not Applicable) - Pascual Sadler DO Familial anesthetic complications: none Was Beta Mary taken within 24 hours: N/A Was Clonidine taken within 24 hours: N/A Last intake: Intake Last Liquid Date 01/08/24 Last Liquid Time 21:00 Last Solid Date 01/07/24 Last Solid Time 19:00 Social No alcohol and No tobacco Exam alert, oriented x 3, clear to auscultation bilaterally and regular rate & rhythm Airway Mallampati: Class I Dentition: false CV/HEM Hypertension GI Gastroesophageal Reflux Disease Anesthetic Plan ASA status: 2 Anesthesia: MAC Risk of > 500 ml blood loss (7ml/kg in children): No Medications/Allergies Home Medications Medication Instructions Recorded Confirmed Last Taken Type ASO to the Right #1 ea 04/27/21 11/29/23 Unknown Rx aspirin 81 mg chewable tablet 81 mg PO DAILY 05/26/21 01/09/24 01/08/24 History amlodipine 2.5 mg tablet 2.5 mg PO DAILY 11/29/23 01/09/24 01/08/24 History olmesartan 40 mg tablet 40 mg PO DAILY 11/29/23 01/09/24 01/08/24 History pantoprazole 40 mg tablet,delayed 40 mg PO BID 6 weeks #84 tabs 11/29/23 01/09/24 01/08/24 Rx release (Protonix) Allergies Allergy/AdvReac Type Severity Reaction Status Date / Time tramadol Allergy Intermediate Hullucinati Verified 01/09/24 10:05 ons lisinopril Allergy syncope Uncoded 01/09/24 10:05 [facility] [place] Anesthesia Medical History (Updated 11/29/23 @ 14:43 by Pascual Sadler DO) Family history of colon cancer Family History Brother Diabetes Mother Hypertension Father Hypertension Social History Smoking and tobacco/nicotine status: never used tobacco/nicotine Second hand smoke exposure: No Alcohol intake: never Substance/Drug Use: never Data Anesthesia Cardiac Studies: No Data to Display
--- NOTE | 2024-01-09 11:06 | PM.HP ---
Providers/Chief Complaint Primary Care Provider: Bailey Conde MD Chief Complaint: K21.9, Z80.0, R1.13 History of Present Illness Phyllis Greene is a 63 year old female Review of Systems General: Reports: 10 or more systems reviewed and unremarkable except in HPI and below Medications/Allergies Home Medications Medication Instructions Recorded Confirmed Last Taken Type ASO to the Right #1 ea 04/27/21 11/29/23 Unknown Rx aspirin 81 mg chewable tablet 81 mg PO DAILY 05/26/21 01/09/24 01/08/24 History amlodipine 2.5 mg tablet 2.5 mg PO DAILY 11/29/23 01/09/24 01/08/24 History olmesartan 40 mg tablet 40 mg PO DAILY 11/29/23 01/09/24 01/08/24 History pantoprazole 40 mg tablet,delayed 40 mg PO BID 6 weeks #84 tabs 11/29/23 01/09/24 01/08/24 Rx release (Protonix) Allergies Allergy/AdvReac Type Severity Reaction Status Date / Time tramadol Allergy Intermediate Hullucinati Verified 01/09/24 10:05 ons lisinopril Allergy syncope Uncoded 01/09/24 10:05 PFSH Acute PFSH: Medical History (Updated 11/29/23 @ 14:43 by Pascual Sadler DO) Family history of colon cancer Family History Brother Diabetes Mother Hypertension Father Hypertension Social History Smoking and tobacco/nicotine status: never used tobacco/nicotine Second hand smoke exposure: No Alcohol intake: never Substance/Drug Use: never Vitals/I&O/Wt Last Vital Signs Temp 97.5 F L 01/09/24 10:07 Pulse 76 01/09/24 10:07 Resp 16 01/09/24 10:07 BP 149/85 01/09/24 10:07 Pulse Ox 98 01/09/24 10:07 O2 Del Method Room Air 01/09/24 10:07 Weight last 48 hrs Weight 235 lb A&P Assessment and plan (1) GERD (gastroesophageal reflux disease): (2) Family history of colon cancer: Plan EGD and colonoscopy Attestations Medical Necessity Statement*: Home Coding Level of Care Code Acute Code for Chg Fwd Diagnoses GERD (gastroesophageal reflux disease) K21.9 Family history of colon cancer Z80.0
[2024-01-09 11:21] VITALS: BP 89/75; PULSE 76; RESP 18; TEMP 36.2; O2SAT 97
[2024-01-09 11:22] VITALS: BP 112/83; PULSE 83; RESP 18; O2SAT 98
--- NOTE | 2024-01-09 11:25 | ANE.PACU2 ---
Inpatient post-anesthesia follow up: Airway intact: Yes Vital signs: Temperature 97.5 F Pulse Rate 76 Respiratory Rate 16 Blood Pressure 149/85 Pulse Oximetry 98 Oxygen Delivery Me thod Room Air Oxygen Flow Rate Fraction of Inspir ed Oxygen Hydration adequate: Yes Nausea and vomiting: No Pain level: 1 Mental status: Baseline
[2024-01-09 11:26] VITALS: BP 125/77; PULSE 77; RESP 18; O2SAT 95
[2024-01-09 11:36] VITALS: BP 110/73; PULSE 60; RESP 18; O2SAT 100
== END 2024-01-09 11:53 | disposition home or self-care (01) ==
PROVIDERS: PCP Internal Medicine; Visit Provider Surgery
PROC: 0DJ08ZZ Inspection of Upper Intestinal Tract, Via Natural or Artificial Opening Endoscopic (ICD-10-PCS; CPT 43235; principal; 2024-01-09 11:00)
PROC: 0DJD8ZZ Inspection of Lower Intestinal Tract, Via Natural or Artificial Opening Endoscopic (ICD-10-PCS; CPT 45378; 2024-01-09 11:00)
DX: Z12.11 Encounter for screening for malignant neoplasm of colon (principal); K21.9 Gastro-esophageal reflux disease without esophagitis; Z80.0 Family history of malignant neoplasm of digestive organs; R10.13 Epigastric pain; K29.30 Chronic superficial gastritis without bleeding; I10 Essential (primary) hypertension
CPT/HCPCS: 43239; 45378; 88305; 88342; J2704; J7030

== ENCOUNTER 2024-03-12 06:56 | Day surgery (SDC) | payer OTHER, SELFPAY ==
[2024-03-12 07:09] VITALS: BP 133/98; PULSE 70; RESP 18; TEMP 36.4; O2SAT 98
[2024-03-12] MEDS: sodium chloride 0.9% 1,000 ML 30 ML IV (07:20)
--- NOTE | 2024-03-12 07:41 | ANES.PREANE2 ---
Pre-Anesthetic Assessment Height/Weight: Height 5 ft 10 in Weight 235 lb Temp Pulse Resp BP Pulse Ox O2 Del Method 97.5 F L 70 18 133/98 98 Room Air 03/12/24 07:09 03/12/24 07:09 03/12/24 07:09 03/12/24 07:09 03/12/24 07:09 03/12/24 07:09 Operation Date: 03/12/24 08:00 Proposed Procedures p Colonoscopy 07410, G0105, R10.13, K21.9, Z80.0(Not Applicable) - Pascual Sadler DO Last intake: Intake Last Liquid Date 03/11/24 Last Liquid Time 20:00 Last Solid Date 03/10/24 Last Solid Time 17:00 Social No alcohol and No tobacco Exam alert, oriented x 3, clear to auscultation bilaterally and regular rate & rhythm Airway Submandibular: within normal limits Cervical ROM: within normal limits Mallampati: Class III Dentition: false Anesthetic Plan ASA status: 2 Anesthesia: MAC Other: No prior issues with anesthesia Patient completed prep GERD, controlled with medication Patient has documented Mirizzi's syndrome, complication with gallstones but currently asymptomatic Patient denies any pulmonary issues Hypertension controlled on medications Plan for MAC anesthesia Medications/Allergies Home Medications Medication Instructions Recorded Confirmed Last Taken Type ASO to the Right #1 ea 04/27/21 02/11/24 Unknown Rx aspirin 81 mg chewable tablet 81 mg PO DAILY 05/26/21 03/07/24 03/07/24 History amlodipine 2.5 mg tablet 2.5 mg PO DAILY 11/29/23 03/07/24 03/11/24 History olmesartan 40 mg tablet 40 mg PO DAILY 11/29/23 03/07/24 03/11/24 History pantoprazole 40 mg tablet,delayed 40 mg PO BID 6 weeks #84 tabs 11/29/23 03/07/24 03/11/24 Rx release (Protonix) Allergies Allergy/AdvReac Type Severity Reaction Status Date / Time tramadol Allergy Intermediate Hullucinati Verified 03/07/24 09:03 ons lisinopril Allergy syncope Uncoded 03/07/24 09:03 Current Medications Generic Name Dose Route Start Last Admin Trade Name Freq PRN Reason Stop Dose Admin Sodium Chloride 1,000 mls @ 30 mls/hr 03/12/24 07:00 03/12/24 07:20 Sodium Chloride 0.9% IV 03/13/24 06:59 30 mls/hr .Q24H BEBETO Administration PFSH Anesthesia Medical History Family history of colon cancer Family History Brother Diabetes Mother Hypertension Father Hypertension Social History Smoking and tobacco/nicotine status: never used tobacco/nicotine Second hand smoke exposure: No Alcohol intake: never Substance/Drug Use: never Data Anesthesia Cardiac Studies: No Data to Display
--- NOTE | 2024-03-12 07:55 | W.PM.OPSUD ---
Surgery/Procedure H&P Update DATE OF PROCEDURE: March 12, 2024 DATE H&P PERFORMED: 02/11/24 H&P UPDATE INFORMATION: I have reviewed H&P completed within last 30 days, I have examined patient prior to procedure and No changes to prior documentation PLANNED PROCEDURE: Operation Date: 03/12/24 08:00 Proposed Procedures p Colonoscopy 66169, G0105, R10.13, K21.9, Z80.0(Not Applicable) - Pascual Sadler,
[2024-03-12 08:18] VITALS: BP 118/80; PULSE 64; RESP 18; TEMP 36.1; O2SAT 100
[2024-03-12 08:30] VITALS: BP 121/81; PULSE 61; RESP 18; O2SAT 98
--- NOTE | 2024-03-12 08:54 | ANE.PACU2 ---
Inpatient post-anesthesia follow up: Airway intact: Yes Vital signs: Temperature 97.0 F Pulse Rate 61 Respiratory Rate 18 Blood Pressure 121/81 Pulse Oximetry 98 Oxygen Delivery Me thod Room Air Oxygen Flow Rate Fraction of Inspir ed Oxygen Hydration adequate: Yes Nausea and vomiting: No Pain level: 1 Mental status: Baseline
== END 2024-03-12 08:54 | disposition home or self-care (01) ==
PROVIDERS: PCP Internal Medicine; Visit Provider Surgery
PROC: 0DJD8ZZ Inspection of Lower Intestinal Tract, Via Natural or Artificial Opening Endoscopic (ICD-10-PCS; CPT 45378; principal; 2024-03-12 08:00)
DX: Z12.11 Encounter for screening for malignant neoplasm of colon (principal); Z80.0 Family history of malignant neoplasm of digestive organs; K63.5 Polyp of colon; K21.9 Gastro-esophageal reflux disease without esophagitis; R10.13 Epigastric pain; R03.0 Elevated blood-pressure reading, without diagnosis of hypertension
CPT/HCPCS: 45385; 88305; J2704; J7030

== ENCOUNTER → 2024-05-07 08:18 | Outpatient (BNVA) | payer OTHER, SELFPAY | PROVIDERS: PCP Internal Medicine; Visit Provider Podiatrist Foot & Ankle Surgery | DX: S93.492A Sprain of other ligament of left ankle, initial encounter; X50.9XXA Other and unspecified overexertion or strenuous movements or postures, initial encounter | CPT/HCPCS: 73610 ==